=== PATIENT | male | born 1980 | race Caucasian/White ===

== ENCOUNTER 2022-07-12 09:00 | Emergency (ER) | payer BC ==
[2022-07-12] MEDS ORDERED: Sodium Chloride 0.9% 1000 ML 1,000 ML IV STA (09:36)
--- NOTE | 2022-07-12 10:00 | XRAY ---
Indication: Dizziness. Stroke. Multiple contiguous axial images obtained through the head without contrast. Comparison: None Normal appearing brain parenchyma, ventricles, and bony calvarium. Visualized paranasal sinuses and mastoid air cells are clear. Impression: Normal CT head without contrast exam.
--- NOTE | 2022-07-12 10:00 | ERPHSYRPT ---
- History of Present Illness Time Seen by Provider: 07/12/22 09:20 Source: patient Exam Limitations: no limitations Patient Subjective Stated Complaint: Pt states that he woke several times last night with his head spinning and was unable to walk, pt did vomit from it Triage Nursing Assessment: Pt brought to the ER by his , karl hooker, denies pain, states that when he got up to use the restroom last night that everything in his head was spinning and he couldn't stand up and he couldn't walk, he went back to sleep and later woke to feeling the same way, after getting up for a bit pt vomitted due to feeling so dizzy and then he felt better and decided to lay down, he layed on his left side and began feeling dizzy and so he rolled over to his right side and did not feel dizzy and he fell asleep, pt slept for a while and then got up and felt fine and got dressed and walked around and then went and brushed his teeth and then he started feeling a little bit dizzy again, pt states that he has never had anything like this happen to him before, 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 Family reports dizziness started approximately 1 AM. Patient went back to sleep and later began to feel dizzy a second time. Patient had 1 bout of emesis. Patient got up to go to the bathroom. Patient states he began to feel dizzy and weak. Patient had difficulty standing. Patient states that he could not walk because of the dizziness. Patient went back to bed laid down towards his right side and symptoms resolved. Patient states that laying towards his right improve the symptomology. Patient is here because "he does not feel right". No history of the same. Patient is otherwise healthy. No BHT. No loss of consciousness. No associated chest pain or shortness of breath. No sick contacts at home. Symptoms were moderate in intensity. No specific worsening or improving factors. 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 at bedside. They voiced no other complaints or concerns at this time. Timing/Duration: today Severity: moderate Modifying Factors: Improves With: other (It appears that positioning himself towards right side-lying improved symptoms.) Associated Symptoms: vomiting, No headaches, No syncope, No seizure Allergies/Adverse Reactions: No Known Drug Allergies Allergy (Verified 07/12/22 09:30) Hx Influenza Vaccination/Date Given: Yes Hx Pneumococcal Vaccination/Date Given: Yes Travel Risk - International Travel Have you traveled outside of the country in past 3 weeks: No - Coronavirus Screening Are you exhibiting any of the following symptoms?: No Close contact with a COVID-19 positive Pt in past 14-21 Days: No - Vaccine Status Have you recieved a Covid-19 vaccination: Yes 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: [employer] - Vaccination Dates Date of 2cond Vaccination (if applicable): 2020 - Review of Systems Constitutional: No Symptoms, No Fever, No Chills Eyes: No Symptoms Ears, Nose, & Throat: No Symptoms Respiratory: No Symptoms, No Cough, No Dyspnea Cardiac: No Symptoms, No Chest Pain, No Edema, No Syncope Abdominal/Gastrointestinal: No Symptoms, No Abdominal Pain, No Nausea, No Vomiting, No Diarrhea Genitourinary Symptoms: No Symptoms, No Dysuria Musculoskeletal: No Symptoms, No Back Pain, No Neck Pain Skin: No Symptoms, No Rash Neurological: No Symptoms, No Dizziness, No Focal Weakness, No Sensory Changes Psychological: No Symptoms Endocrine: No Symptoms Hematologic/Lymphatic: No Symptoms Immunological/Allergic: No Symptoms All Other Systems: Reviewed and Negative - Past Medical History Pertinent Past Medical History: Yes Psycho-Social History: Anxiety - Past Surgical History Past Surgical History: Yes Musculoskeletal: Orthopedic Surgery Other Surgical History: carpal tunnel. lasik eye. rt knee - Social History Smoking Status: Never smoker Exposure to second hand smoke: No Drug Use: none Patient Lives Alone: No - Nursing Vital Signs Nursing Vital Signs: Initial Vital Signs Temperature 98.1 F 07/12/22 09:14 Pulse Rate 78 07/12/22 09:14 Blood Pressure 129/90 07/12/22 09:14 O2 Sat by Pulse Oximetry 94 L 07/12/22 09:14 Pain Scale Pain Intensity 0 - Physical Exam General Appearance: no apparent distress, alert Eye Exam: PERRL/EOMI, eyes nml inspection Ears, Nose, Throat Exam: normal ENT inspection, TMs normal, pharynx normal, moist mucous membranes Neck Exam: normal inspection, non-tender, supple, full range of motion Respiratory Exam: normal breath sounds, lungs clear, airway intact, No respiratory distress Cardiovascular Exam: regular rate/rhythm, normal heart sounds, normal peripheral pulses Gastrointestinal/Abdomen Exam: soft, normal bowel sounds, No tenderness, No mass Back Exam: normal inspection, normal range of motion, No CVA tenderness, No vertebral tenderness Extremity Exam: normal inspection, normal range of motion, pelvis stable Neurologic Exam: alert, oriented x 3, cooperative, normal mood/affect, nml cerebellar function, nml station & gait, sensation nml, No motor deficits Skin Exam: normal color, warm, dry, No rash Lymphatic Exam: No adenopathy SpO2 Interpretation: normal SpO2: 94 O2 Delivery: Room Air - Course Nursing assessment & vital signs reviewed: No EKG Interpreted by Me: RATE ([id number]), Sinus Rhythm, NORMAL AXIS, NORMAL INTERVALS - CT Exams Head CT Interpretation: Tele-radiologist Report (Normal CT head without contrast) Other CT Interpretation: Tele-radiologist Report (Normal CT head without contrast.) Soft Tissue Neck CT Interpretation: Tele-radiologist Report (Normal CTA neck with contrast exam) Ordered Tests: Active Orders 24 hr Category Date Time Status 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 Care 07/12/22 09:37 Active Clean Catch Urine Specimen STAT Care 07/12/22 09:36 Active EKG-ER Only STAT Care 07/12/22 09:36 Active IV Insertion STAT Care 07/12/22 09:36 Active Pulse Oximetry (ED) STAT Care 07/12/22 09:[address] ANGIOGRAPHY NECK [CT] Stat Exams 07/12/22 13:21 Completed CTA HEAD W AND/OR WO CONTRAST [CT] Stat Exams 07/12/22 13:20 Completed HEAD WITHOUT CONTRAST [CT] Stat Exams 07/12/22 09:38 Completed MRI BRAIN W/O CONTRAST [MRI] Stat Exams 07/12/22 13:23 Completed CBC W DIFF Stat Lab 07/12/22 10:24 Completed CMP Stat Lab 07/12/22 10:24 Completed MAGNESIUM Stat Lab 07/12/22 10:24 Completed POCT GLUCOSE Stat Lab 07/12/22 09:56 Completed TROPONIN Q4H Lab 07/12/22 10:24 Completed TROPONIN Q4H Lab 07/12/22 15:13 Completed TROPONIN Q4H Lab 07/12/22 17:45 Ordered Urine Triage Profile Stat Lab 07/12/22 11:20 Completed Medication Summary Discontinued Medications Generic Name Dose Route Start Last Admin Trade Name Freq PRN Reason Stop Dose Admin Aspirin 324 mg 07/12/22 13:22 07/12/22 13:50 Aspirin 81 Mg Tab.Chew PO 07/12/22 13:23 324 mg STAT ONE Administration Aspirin Confirm 07/12/22 13:50 Aspirin 81 Mg Tab.Chew Administered 07/12/22 13:51 Dose 324 mg .ROUTE .STK-MED ONE Sodium Chloride 1,000 mls @ 999 mls/hr 07/12/22 09:36 07/12/22 11:43 Sodium Chloride 0.9% 1000 Ml IV 07/12/22 10:36 Infused .Q1H1M STA Infusion Sodium Chloride Confirm 07/12/22 10:15 Sodium Chloride 0.9% 1000 Ml Administered 07/12/22 10:16 Dose 1,000 mls @ ud .ROUTE .STK-MED ONE Meclizine HCl 25 mg 07/12/22 14:02 07/12/22 15:17 Meclizine Hcl 25 Mg Tablet PO 07/12/22 14:03 25 mg STAT ONE Administration Meclizine HCl Confirm 07/12/22 15:17 Meclizine Hcl 25 Mg Tablet Administered 07/12/22 15:18 Dose 25 mg .ROUTE .STK-MED ONE Ondansetron HCl 4 mg 07/12/22 14:03 Ondansetron Hcl 4 Mg/2 Ml Vial IV 07/12/22 14:04 STAT ONE Lab/Rad Data: Laboratory Result Diagrams 07/12/22 10:24 07/12/22 10:24 Laboratory Results 07/12/22 07/12/22 07/12/22 Range/Units 15:13 11:45 11:20 WBC (4.0-10.5) x10^3/uL RBC (4.1-5.6) x10^6/uL Hgb (12.5-18.0) g/dL Hct (42-50) % MCV (78-100) fL MCH (26-32) pg MCHC (32-36) g/dL RDW (11.5-14.0) % Plt Count (150-450) x10^3/uL MPV (7.5-11.0) fL Gran % (36.0-66.0) % Immature Gran % (Auto) (0.00-0.4) % Nucleat RBC Rel Count (0.00-0.1) % Eos # (Auto) (0-0.5) x10^3/uL Immature Gran # (Auto) (0.00-0.03) x10^3u/L Absolute Lymphs (auto) (1.0-4.6) x10^3/uL Absolute Monos (auto) (0.0-1.3) x10^3/uL Absolute Nucleated RBC (0.00-0.01) x10^3u/L Lymphocytes % (24.0-44.0) % Monocytes % (0.0-12.0) % Eosinophils % (0.00-5.0) % Basophils % (0.0-0.4) % Absolute Granulocytes (1.4-6.9) x10^3/uL Basophils # (0-0.4) x10^3/uL Sodium (137-145) mmol/L Potassium (3.5-5.1) mmol/L Chloride (98-107) mmol/L Carbon Dioxide (22-30) mmol/L Anion Gap (5-15) MEQ/L BUN (9-20) mg/dL Creatinine (0.66-1.25) mg/dL Estimated GFR ML/MIN Glucose (74-106) mg/dL POC Glucometer (74 to 106) mg/dL Calcium (8.4-10.2) mg/dL Magnesium (1.6-2.3) mg/dL Total Bilirubin (0.2-1.3) mg/dL AST (17-59) U/L ALT (0-50) U/L Alkaline Phosphatase (38-126) U/L Troponin I < 0.012 (0.000-0.034) ng/mL Serum Total Protein (6.3-8.2) g/dL Albumin (3.5-5.0) g/dL Urine Opiates Level NEGATIVE (NEGATIVE) Ur Methadone NEGATIVE (NEGATIVE) Urine Barbiturates NEGATIVE (NEGATIVE) Ur Phencyclidine (PCP) NEGATIVE (NEGATIVE) Urine Amphetamine NEGATIVE (NEGATIVE) U Benzodiazepine Level NEGATIVE (NEGATIVE) Urine Cocaine NEGATIVE (NEGATIVE) Urine Marijuana (THC) NEGATIVE (NEGATIVE) Influenza Type A Ag NEGATIVE (NEGATIVE) Influenza Type B Ag NEGATIVE (NEGATIVE) RSV (PCR) NEGATIVE (Negative) SARS-CoV-2 (PCR) NEGATIVE (NEGATIVE) 07/12/22 07/12/22 07/12/22 Range/Units 10:24 10:24 10:24 WBC 4.7 (4.0-10.5) x10^3/uL RBC 5.02 (4.1-5.6) x10^6/uL Hgb 15.6 (12.5-18.0) g/dL Hct 46.1 (42-50) % MCV 91.8 (78-100) fL MCH 31.1 (26-32) pg MCHC 33.8 (32-36) g/dL RDW 12.0 (11.5-14.0) % Plt Count 280 (150-450) x10^3/uL MPV 9.4 (7.5-11.0) fL Gran % 69.6 H (36.0-66.0) % Immature Gran % (Auto) 0.2 (0.00-0.4) % Nucleat RBC Rel Count 0.0 (0.00-0.1) % Eos # (Auto) 0.04 (0-0.5) x10^3/uL Immature Gran # (Auto) 0.01 (0.00-0.03) x10^3u/L Absolute Lymphs (auto) 1.05 (1.0-4.6) x10^3/uL Absolute Monos (auto) 0.30 (0.0-1.3) x10^3/uL Absolute Nucleated RBC 0.00 (0.00-0.01) x10^3u/L Lymphocytes % 22.6 L (24.0-44.0) % Monocytes % 6.5 (0.0-12.0) % Eosinophils % 0.9 (0.00-5.0) % Basophils % 0.2 (0.0-0.4) % Absolute Granulocytes 3.24 (1.4-6.9) x10^3/uL Basophils # 0.01 (0-0.4) x10^3/uL Sodium 140 (137-145) mmol/L Potassium 4.4 (3.5-5.1) mmol/L Chloride 105 (98-107) mmol/L Carbon Dioxide 25 (22-30) mmol/L Anion Gap 13.4 (5-15) MEQ/L BUN 14 (9-20) mg/dL Creatinine 0.66 (0.66-1.25) mg/dL Estimated GFR > 60.0 ML/MIN Glucose 112 H (74-106) mg/dL POC Glucometer (74 to 106) mg/dL Calcium 9.2 (8.4-10.2) mg/dL Magnesium 2.3 (1.6-2.3) mg/dL Total Bilirubin 0.60 (0.2-1.3) mg/dL AST 51 (17-59) U/L ALT 56 H (0-50) U/L Alkaline Phosphatase 63 (38-126) U/L Troponin I < 0.012 (0.000-0.034) ng/mL Serum Total Protein 8.0 (6.3-8.2) g/dL Albumin 4.6 (3.5-5.0) g/dL Urine Opiates Level (NEGATIVE) Ur Methadone (NEGATIVE) Urine Barbiturates (NEGATIVE) Ur Phencyclidine (PCP) (NEGATIVE) Urine Amphetamine (NEGATIVE) U Benzodiazepine Level (NEGATIVE) Urine Cocaine (NEGATIVE) Urine Marijuana (THC) (NEGATIVE) Influenza Type A Ag (NEGATIVE) Influenza Type B Ag (NEGATIVE) RSV (PCR) (Negative) SARS-CoV-2 (PCR) (NEGATIVE) 07/12/22 Range/Units 09:56 WBC (4.0-10.5) x10^3/uL RBC (4.1-5.6) x10^6/uL Hgb (12.5-18.0) g/dL Hct (42-50) % MCV (78-100) fL MCH (26-32) pg MCHC (32-36) g/dL RDW (11.5-14.0) % Plt Count (150-450) x10^3/uL MPV (7.5-11.0) fL Gran % (36.0-66.0) % Immature Gran % (Auto) (0.00-0.4) % Nucleat RBC Rel Count (0.00-0.1) % Eos # (Auto) (0-0.5) x10^3/uL Immature Gran # (Auto) (0.00-0.03) x10^3u/L Absolute Lymphs (auto) (1.0-4.6) x10^3/uL Absolute Monos (auto) (0.0-1.3) x10^3/uL Absolute Nucleated RBC (0.00-0.01) x10^3u/L Lymphocytes % (24.0-44.0) % Monocytes % (0.0-12.0) % Eosinophils % (0.00-5.0) % Basophils % (0.0-0.4) % Absolute Granulocytes (1.4-6.9) x10^3/uL Basophils # (0-0.4) x10^3/uL Sodium (137-145) mmol/L Potassium (3.5-5.1) mmol/L Chloride (98-107) mmol/L Carbon Dioxide (22-30) mmol/L Anion Gap (5-15) MEQ/L BUN (9-20) mg/dL Creatinine (0.66-1.25) mg/dL Estimated GFR ML/MIN Glucose (74-106) mg/dL POC Glucometer 110 H (74 to 106) mg/dL Calcium (8.4-10.2) mg/dL Magnesium (1.6-2.3) mg/dL Total Bilirubin (0.2-1.3) mg/dL AST (17-59) U/L ALT (0-50) U/L Alkaline Phosphatase (38-126) U/L Troponin I (0.000-0.034) ng/mL Serum Total Protein (6.3-8.2) g/dL Albumin (3.5-5.0) g/dL Urine Opiates Level (NEGATIVE) Ur Methadone (NEGATIVE) Urine Barbiturates (NEGATIVE) Ur Phencyclidine (PCP) (NEGATIVE) Urine Amphetamine (NEGATIVE) U Benzodiazepine Level (NEGATIVE) Urine Cocaine (NEGATIVE) Urine Marijuana (THC) (NEGATIVE) Influenza Type A Ag (NEGATIVE) Influenza Type B Ag (NEGATIVE) RSV (PCR) (Negative) SARS-CoV-2 (PCR) (NEGATIVE) - Progress Progress: improved Progress Note: MRI brain without contrast is normal. 07/12/22 16:02 Patient 42-year-old male presents to our ED for evaluation of cute onset dizziness. Physical exam reveals dizziness possible vertigo however on the differential diagnosis is a posterior cerebral stroke. Patient's complaint is acute in nature. Complexity is moderate. No significant comorbidities contribute the patient's presentation. Studies obtained include EKG which was reviewed by Dr. Rutledge personally. EKG showed normal sinus rhythm. CTA head, CTA neck, plain CT head, MRI brain. Other studies include CBC CMP COVID testing, magnesium, troponin, toxicology screen. Laboratory work-up essentially unremarkable. Imaging study of head was negative. Patient received meclizine for dizziness. Patient received aspirin after plain CT head as protocol for possible TIA/stroke. Normal saline administered as well. Patient had no nausea in our ED. Zofran was ordered however not administered. We consulted telemetry neuro who advised the MRI, CTA of the head and neck. Per our neurologist patient could be discharged as long as the i maging studies were negative. All imaging studies are negative patient will be discharged home. There is no indication for tPA. Patient was outside of therapeutic window and however physical exam and history did not mandate tPA. Patient agrees to follow-up with primary care doctor within 48 hours for reevaluation. Level of M service provided was moderate. Complexity of problems addressed was moderate. Complex of data reviewed and analyzed is moderate. Risk of complication and/or risk of morbidity/mortality of patient management was moderate. No critical care time. Patient's served as independent historian as patient felt unwell to provide information for our HPI. The results of our testing was used for medical decision making. Discharge diagnosis is dizziness/vertigo. Patient reassessed. He feels much better. Dizziness resolved. Patient agrees to follow-up with his primary care doctor within 48 hours for reevaluation. Time spent during discharge is approximately 15 minutes. Patient and voiced no other complaints or concerns at this time. Will discharge home. Portions of this note were created with voice recognition technology. There may be grammatical, spelling, punctuation or sound alike errors 07/12/22 16:04 07/12/22 16:07 Counseled pt/family regarding: lab results, diagnosis, need for follow-up, rad results - Departure Departure Disposition: Home Clinical Impression: Dizziness, Vertigo Condition: Stable Critical Care Time: No Referrals: [facility] [employer] [Primary Care Provider] - Follow up/PCP as directed Prescriptions: Ondansetron ODT 4 MG [Zofran Odt 4 mg] 4 mg PO Q6H PRN PRN #10 tablet PRN Reason: Vomiting Meclizine HCl 25 mg [Antivert 25 mg] 25 mg PO DAILY 7 Days #7 tablet
[2022-07-12] MEDS ORDERED: Sodium Chloride 0.9% 1000 ML 1,000 ML ONE (10:15)
[2022-07-12 10:28] LABS: Absolute Neutrophil Ct (ANC) 3.24 x10^3/uL (1.4-6.9); BASOPHIL % 0.2 % (0.0-0.4); Basophil (Absolute #) 0.01 x10^3/uL (0-0.4); Eosinophil % 0.9 % (0.00-5.0); Eosinophil (Absolute #) 0.04 x10^3/uL (0-0.5); Hematocrit 46.1 % (42-50); Hemoglobin 15.6 g/dL (12.5-18.0); IMMATURE GRAN # 0.01 x10^3u/L (0.00-0.03); IMMATURE GRAN % 0.2 % (0.00-0.4); Lymphocyte (Absolute #) 1.05 x10^3/uL (1.0-4.6); Lymphocytes % 22.6 % (24.0-44.0); Mean Cell Volume 91.8 fL (78-100); Mean Corpuscular Hemoglobin 31.1 pg (26-32); Mean Corpuscular Hgb Concent. 33.8 g/dL (32-36); Mean Platelet Volume 9.4 fL (7.5-11.0); Monocytes % 6.5 % (0.0-12.0); Neutrophil % 69.6 % (36.0-66.0); Platelet Count 280 x10^3/uL (150-450); Red Blood Count 5.02 x10^6/uL (4.1-5.6); White Blood Count 4.7 x10^3/uL (4.0-10.5)
[2022-07-12 10:43] LABS: ALBUMIN 4.6 g/dL (3.5-5.0); ALKALINE PHOSPHATASE 63 U/L (38-126); ANION GAP 13.4 MEQ/L (5-15); BLOOD UREA NITROGEN 14 mg/dL (9-20); CHLORIDE 105 mmol/L (98-107); Calcium 9.2 mg/dL (8.4-10.2); Carbon Dioxide 25 mmol/L (22-30); Creatinine 1 0.66 mg/dL (0.66-1.25); EST GLOMERULAR FILTRATION RATE > 60.0 ML/MIN; Glucose 112 mg/dL (74-106); MAGNESIUM 2.3 mg/dL (1.6-2.3); Potassium 4.4 mmol/L (3.5-5.1); SGOT/AST 51 U/L (17-59); SGPT/ALT 56 U/L (0-50); SODIUM 140 mmol/L (137-145)
[2022-07-12 12:16] LABS: Amphetamine,Urine NEGATIVE (NEGATIVE); Barbiturate,Urine NEGATIVE (NEGATIVE); Benzodiazepine,Urine NEGATIVE (NEGATIVE); Cocaine,Urine NEGATIVE (NEGATIVE); Methadone,Urine NEGATIVE (NEGATIVE); Opiate,Urine NEGATIVE (NEGATIVE); PCP,Urine NEGATIVE (NEGATIVE); THC,Urine NEGATIVE (NEGATIVE)
[2022-07-12 12:23] LABS: INFLUENZA A NEGATIVE (NEGATIVE); INFLUENZA B NEGATIVE (NEGATIVE); RESPIRATORY SYNCTIAL VIRUS NEGATIVE (Negative); SARS-CoV-2 Xpert Express NEGATIVE (NEGATIVE)
[2022-07-12] MEDS ORDERED: BABY ASPIRIN 81 MG CHEW PO ONE (13:22)
[2022-07-12] MEDS ORDERED: BABY ASPIRIN 81 MG CHEW ONE (13:50)
[2022-07-12] MEDS ORDERED: ANTIVERT 25 MG PO ONE (14:02)
[2022-07-12] MEDS ORDERED: Zofran 4 MG/2 ML VIAL IV ONE (14:03)
[2022-07-12] MEDS ORDERED: ANTIVERT 25 MG ONE (15:17)
--- NOTE | 2022-07-12 15:27 | XRAY ---
Indication: Severe dizziness. Stroke. Normal CT head and normal MRI brain. Conventional contrast enhanced CTA neck performed using 80 cc Isovue 370 contrast. 2-D sagittal and coronal reformatted images obtained. Additional 3-D reformatted images obtained using a separate workstation. Comparison: None Visualized aortic arch is negative for aneurysm/dissection. Normal widely patent branching right brachiocephalic, left common carotid, and left subclavian arteries. Left and right common carotid, carotid bulb, internal carotid, and external carotid arteries are normal in CTA appearance. Vertebral arteries are also normal in CTA with the left slightly larger in caliber. A few sub-centimeter cervical lymph nodes bilaterally. No pathologic cervical/supraclavicular lymphadenopathy. Parotid and submandibular glands are bilaterally symmetric. Thyroid gland enhances homogeneously. Supra and infraglottic airway widely patent. Normal epiglottis. Osseous structures intact with minimal C5-C6 degenerative changes. Lung apices demonstrates small right apical calcified granuloma. Impression: Normal CTA neck with contrast exam.
--- NOTE | 2022-07-12 15:29 | XRAY ---
Indication: Severe dizziness. Stroke. Normal CT head and normal MRI brain exams. Conventional contrast enhanced CTA head performed using 80 cc Isovue 370 contrast. 2-D sagittal and coronal reformatted images obtained. Additional 3-D reformatted images obtained using a separate workstation. Comparison: None Distal internal carotid arteries are bilaterally symmetric without critical stenosis, obstruction, or AV malformation. Normal carotid terminus with normal branching A1 and M1 segments bilaterally. More distal anterior cerebral and middle cerebral arteries are normal in CTA appearance bilaterally. Anatomic variant for origin left posterior cerebral artery. Posterior circulation demonstrates normal CTA appearance to the basilar, left/right posterior cerebral, and left/right superior cerebellar arteries. Venous sinuses/drainage unremarkable. No abnormal enhancing intra or extra-axial mass. Impression: Normal CTA head with contrast exam.
[2022-07-12 15:40] VITALS: O2SAT 94
--- NOTE | 2022-07-12 15:48 | XRAY ---
Indication: Severe dizziness. Stroke. Normal CT head without contrast exam. Sagittal, coronal, and axial MRI brain performed without contrast using T1, T2, FLAIR, diffusion, and ADC sequences. Comparison: None Ventriculosulcal pattern appears symmetric. No acute intracranial hemorrhage, abnormal extra-axial fluid collection, or mass effect. Diffusion images are negative for restricted signal. Fourth ventricle is midline without hydrocephalus. 7/8 cranial nerve complex bilaterally symmetric. Normal flow void signal within the major intracerebral circulation. Normal appearing craniocervical junction and sella turcica. Paranasal sinuses are clear. Impression: Normal MRI brain without contrast exam.
[2022-07-12 16:04] VITALS: BP 133/88; PULSE 68
== END 2022-07-12 16:22 | disposition home or self-care (01) ==
LOC: ED 09:00
DX: R42 Dizziness and giddiness (principal); R11.10 Vomiting, unspecified
CPT/HCPCS: 0241U; 36415; 70450; 70496; 70498; 70551; 80053; 80307; 82947; 83735; 84484; 85025; 93005; 93041; 94760; 96360; 99284; A9270-GY

== ENCOUNTER 2023-12-05 05:53 | Day surgery (SDC) | payer OTHER ==
[2023-12-05] MEDS: Lactated Ringers 1,000 ML IV SCH (06:18)
[2023-12-05] MEDS: CEFAZOLIN 2 GM-D5W BAG** 2 GM/50 ML ML IV SCH (06:18)
[2023-12-05] MEDS ORDERED: Lactated Ringers 1,000 ML IV ONE (06:25)
[2023-12-05] MEDS ORDERED: MARCAINE 0.25% PF/ EPI 1:200,000 ONE (06:25)
[2023-12-05] MEDS ORDERED: Xylocaine-Mpf 2% 5 Ml Vial IJ ONE ×2 (06:53→06:55)
[2023-12-05] MEDS ORDERED: Zofran 4 MG/2 ML VIAL IV ONE ×2 (06:53→06:55)
[2023-12-05] MEDS ORDERED: TORAdol 30 mg Injection IJ ONE ×2 (06:53→06:55)
[2023-12-05] MEDS ORDERED: Decadron 4 MG INJ IV ONE ×2 (06:53→06:55)
[2023-12-05] MEDS ORDERED: DIPRIVAN 200 MG/20 ML IV ONE ×2 (06:54)
[2023-12-05] MEDS ORDERED: Versed 2 MG/2 ML Injection ONE (07:22)
[2023-12-05] MEDS ORDERED: SUBLIMAZE 100 MCG/2 ML IV ONE (07:23)
[2023-12-05] MEDS ORDERED: Epinephrine Preservative Free 1 MG/ML ONE ×2 (07:46→07:57)
[2023-12-05] MEDS ORDERED: SUBLIMAZE 100 MCG/2 ML ONE (08:45)
[2023-12-05] MEDS ORDERED: Hydromorphone 1 mg/ml Injection ONE (08:46)
[2023-12-05] MEDS ORDERED: MORPHINE SULFATE 10 MG/ML ONE (09:14)
[2023-12-05 09:51] VITALS: TEMP 96.5
[2023-12-05 10:39] VITALS: BP 133/93; PULSE 89; RESP 16; O2SAT 95
--- NOTE | 2023-12-05 23:24 | OP ---
SURGERY DATE/TIME: 12/05/2023 5208 - [id number] PREOPERATIVE DIAGNOSIS: Right knee medial and lateral meniscal tears. POSTOPERATIVE DIAGNOSES: Right knee medial and lateral meniscal tear and lateral femoral condyle cartilage defect with loose body. PROCEDURES: 1) Right knee arthroscopy with partial medial and lateral meniscectomy. 2) Right lateral femoral condyle microfracture. SURGEON: Ovi Asher MD ANESTHESIA: General. FINDINGS: Normal patellofemoral joint. The medial compartment showed normal articular surfaces. There is mild edge tearing of the anterior medial meniscus at the 6 o'clock position. The ACL was okay. The lateral compartment findings were a 12 o'clock lateral meniscal tear. There was about a 12 mm x 5 mm longitudinal full-thickness cartilage defect in the weightbearing portion of the lateral femoral condyle. INDICATIONS FOR PROCEDURE: Patient is a 43-year-old white male with painful right knee refractive to conservative care. It was thought he may have a meniscal tear that would benefit from debridement. DESCRIPTION OF PROCEDURE AND FINDINGS: Patient was seen in the holding area. We identified the right knee as correct. This was initialed by me. He had 2 g of Kefzol IV preoperatively. He was taken to the OR where he had general anesthesia. He was placed supine with his right lower extremity in arthroscopic leg gonsalves and left lower extremity in Toribio leg gonsalves with hip and knee flexed mildly. He had sterile prep and draping to the right lower extremity. The portals were each injected with 3 mL of 0.25% Marcaine with epinephrine. The knee was injected with about 10 mL of the 0.25% Marcaine with epinephrine. Time out was performed. The lateral portal was made 5 mm lateral to the patellar tendon and 5 mm superior to the joint line with a 15 blade aiming towards the notch. A blunt trocar was used to introduce the 30-degree scope into the lateral joint line portal with pump pressure set at 15 mmHg, irrigating copiously with normal saline with 1 mL of 1:100,000 epinephrine/3 L bag. The joint was inspected and medial portal was made 5 mm to the medial patella and 5 mm superior to the joint line. The probe was used in this portal to probe the 3 compartments with the findings as mentioned as above. There was also a small loose body about 5 mm long x 3 mm in diameter and appeared to be cartilage. The shaver was used to debride the anterior medial meniscal tear and the posterior lateral meniscal tear. Then the cartilage defect on the lateral femoral condyle was debrided with a shaver to remove loose cartilage edges. Then knee was flexed 30 degrees. Cartilage pick was used to perform multiple microfractures with good bleeding obtained from this. The depth of the penetration was about 4 mm. The knee was then thoroughly irrigated with the large cannula to allow the loose body to come out. The foot was allowed to extravasate. Then portals were closed with 4-0 Monocryl subcuticular suture, Steri-Strips and Mastisol. Sterile dressings applied. ESTIMATED BLOOD LOSS: 0. FLUIDS: See Anesthesia record. SPECIMENS: None. DRAINS: None. COMPLICATIONS: None. Plan is for patient to be weightbearing as tolerated. He will go home toe-touch weight bear for 4 weeks. He may range of motion the knee. We will hold him off work. We will see him back in 1 week. He will go home on [place] 7.5, 1 p.o. q.6 h. p.r.n., dispense #15. He may take anti-inflammatories also. He may eventually need a cartilage replacement procedure.
== END 2023-12-05 10:50 | disposition home or self-care (01) ==
LOC: SDC 05:53
PROVIDERS: ATTEND Orthopaedic Surgery
DX: S83.281A Other tear of lateral meniscus, current injury, right knee, initial encounter (principal); S83.241A Other tear of medial meniscus, current injury, right knee, initial encounter; M24.111 Other articular cartilage disorders, right shoulder
CPT/HCPCS: 27333; 29879; J0171; J0690; J1100; J1170; J1885; J2250; J2270; J2405; J2704; J3010

== ENCOUNTER 2024-06-25 10:55 | Emergency (ER) | payer SELFPAY ==
[2024-06-25 11:19] VITALS: BP 160/109; PULSE 86; RESP 18; TEMP 93; O2SAT 98
[2024-06-25] MEDS: XYLOCAINE 1% HCL 20 ML MDV IJ ONE (11:25)
[2024-06-25] MEDS: XYLOCAINE 1%/Epi 1:100000 MDV 20 ML IJ ONE (11:27)
[2024-06-25] MEDS ORDERED: XYLOCAINE 1%/Epi 1:100000 MDV 20 ML ONE (11:28)
--- NOTE | 2024-06-25 11:40 | ERPHSYRPT ---
- History of Present Illness Time Seen by Provider: 06/25/24 11:25 Source: patient Exam Limitations: no limitations Patient Subjective Stated Complaint: RIGHT INDEX FINGER INJURY, NUCKLE. 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 Triage Nursing Assessment: RIGHT FINGER, NUCKLE, SHOWS A LAC APPROX 1X0.5CM WITH A SLIGHT AMOUNT OF A BLACK DEBRIS NOTED. NO ACTIVE BLEDING AT THIS TIME. Physician History: 44-year-old male presents to our ED for evaluation and treatment of a laceration just superficial to the right index PIP joint. 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 Injury occurred just prior to arrival. Patient reports his tetanus is up-to-date. Patient declined a x-ray of his finger. Pain described as an ache that is localized. Wound was measured and irrigated by RN. Wound length is 1 cm. No other injuries reported. Patient voices no other complaints or concerns at this time. Portions of this note were created with voice recognition technology. There may be grammatical, spelling, punctuation or sound alike errors Timing/Duration: today (Just prior to arrival) Severity: mild Modifying Factors: Improves With: nothing Associated Symptoms: denies symptoms Allergies/Adverse Reactions: No Known Drug Allergies Allergy (Verified 06/25/24 11:40) Home Medications: No Reportable Medications [No Reported Medications] 06/25/24 [History] Hx Tetanus, Diphtheria Vaccination/Date Given: Yes (WITHIN THE LAST 2 YEARS) Hx Influenza Vaccination/Date Given: No Hx Pneumococcal Vaccination/Date Given: No Immunizations Up to Date: No Travel Risk - International Travel Have you traveled outside of the country in past 3 weeks: No - Emerging Infectious Disease Are you exhibiting symptoms associated with any current EIDs: No - Review of Systems Constitutional: No Symptoms, No Fever, No Chills Eyes: No Symptoms Ears, Nose, & Throat: No Symptoms Respiratory: No Symptoms, No Cough, No Dyspnea Cardiac: No Symptoms, No Chest Pain, No Edema, No Syncope Abdominal/Gastrointestinal: No Symptoms, No Abdominal Pain, No Nausea, No Vomiting, No Diarrhea Genitourinary Symptoms: No Symptoms, No Dysuria Musculoskeletal: No Symptoms, No Back Pain, No Neck Pain Skin: No Symptoms, No Rash Neurological: No Symptoms, No Dizziness, No Focal Weakness, No Sensory Changes Psychological: No Symptoms Endocrine: No Symptoms Hematologic/Lymphatic: No Symptoms Immunological/Allergic: No Symptoms All Other Systems: Reviewed and Negative - Past Medical History Pertinent Past Medical History: Yes Neurological History: No Pertinent History ENT History: No Pertinent History Cardiac History: No Pertinent History Respiratory History: No Pertinent History Endocrine Medical History: No Pertinent History Musculoskeletal History: No Pertinent History GI Medical History: No Pertinent History History: No Pertinent History Psycho-Social History: Anxiety Male Reproductive Disorders: No Pertinent History Other Medical History: LASIX EYE SURGERY, R CARPAL TUNNEL SX (2013), L KNEE SX WITH BONE SPUR REMOVAL, L QUAD TEAR, HX OF LUMBAR DISC INJURY - Past Surgical History Past Surgical History: Yes Neuro Surgical History: No Pertinent History Cardiac: No Pertinent History Respiratory: No Pertinent History Gastrointestinal: No Pertinent History Genitourinary: No Pertinent History Musculoskeletal: Orthopedic Surgery Male Surgical History: No Pertinent History Other Surgical History: LASIX EYE SURGERY, R CARPAL TUNNEL SX (2013), L KNEE SX WITH BONE SPUR REMOVAL, L QUAD TEAR, HX OF LUMBAR DISC INJURY. RIGHT TORN MANISC SX IN DECEMBER - Social History Smoking Status: Never smoker Exposure to second hand smoke: Yes Drug Use: none Patient Lives Alone: No - Social Determinants of Health Will the patient participate in the screening: Declined to provide - Nursing Vital Signs Nursing Vital Signs: Initial Vital Signs Temperature 93 F 06/25/24 11:17 Pulse Rate 86 06/25/24 11:17 Respiratory Rate 18 06/25/24 11:17 Blood Pressure 160/109 06/25/24 11:17 O2 Sat by Pulse Oximetry 98 06/25/24 11:17 Pain Scale Pain Intensity 1 - Physical Exam General Appearance: no apparent distress, alert Eye Exam: PERRL/EOMI, eyes nml inspection Ears, Nose, Throat Exam: normal ENT inspection Neck Exam: normal inspection, full range of motion Respiratory Exam: normal breath sounds, airway intact, No respiratory distress Cardiovascular Exam: regular rate/rhythm, normal peripheral pulses, other (Intact radial pulse at the involved extremity) Back Exam: normal inspection, normal range of motion, No vertebral tenderness Extremity Exam: normal inspection, normal range of motion, pelvis stable, other (There is a 1 cm laceration over the right index finger PIP joint. On examination there appears to be involvement of the bone. However patient declined an x-ray of the involved digit. However extensor tendon function appears to be intact. The involved digits neurovascular tact distally ) Neurologic Exam: alert, oriented x 3, cooperative, normal mood/affect, sensation nml, No motor deficits Skin Exam: normal color, warm, dry, No rash Lymphatic Exam: No adenopathy SpO2 Interpretation: normal SpO2: 98 O2 Delivery: Room Air Procedures - Laceration/Wound Repair Right Finger Time of Procedure: 11:20 Wound Location: Right (Right index finger superficial to PIP joint) Wound Length (cm): 1 Wound's Depth, Shape: superficial Wound Explored: clean Irrigated: Yes Hibiclens Prep: Yes Anesthesia: local, 1% lidocaine w/ Epi (Local 1% lidocaine with epi to obtain hemostasis.) Volume Anesthetic (ccs): 3 Wound Debrided: No wound debridement indicated Wound Repaired With: sutures Suture Size/Type: 5-0, ethilon Number of Sutures: 3 Layer Closure?: No Sterile Dressing Applied?: Yes Splint Applied?: Yes Sling Applied?: No Progress: Patient neurovascular tact distally post procedure. No intra or postprocedural complications. Patient tolerated procedure well. 06/25/24 11:40 - Course Nursing assessment & vital signs reviewed: Yes Ordered Tests: Medication Summary Discontinued Medications Generic Name Dose Route Start Last Admin Trade Name Freq PRN Reason Stop Dose Admin Lidocaine HCl 4 ml 06/25/24 11:21 06/25/24 11:25 Lidocaine Hcl 1% 20 Ml Mdv 20 Ml Ml IJ 06/25/24 11:22 Not Given STAT ONE Lidocaine/Epinephrine 4 ml 06/25/24 11:26 06/25/24 11:27 Lidocaine Hcl/Epinephrine 1% 20 Ml IJ 06/25/24 11:27 4 ml STAT ONE Administration Lidocaine/Epinephrine Confirm 06/25/24 11:28 Lidocaine Hcl/Epinephrine 1% 20 Ml Administered 06/25/24 11:29 Dose 4 ml .ROUTE .STEndPlay-MED ONE - Progress Progress: improved Progress Note: 44-year-old male presents to our ED for evaluation of a finger laceration involving the right index finger. Laceration length measures 1 cm. There is an adjacent laceration arranged in parallel that also measures 1 cm however the second laceration appears to be significantly more superficial. The wound was anesthetized using 3 cc 1% lidocaine with epi. Epi used for hemostasis. The injection was localized careful not to involve the digital arteries. The wound was closed using 3 simple interrupted sutures. Suture material used with 5-0 Ethilon. Patient tolerated procedure well. Patient neurovascular tact distally post procedure. Patient declined an x-ray of the involved digit. A prescription for antibiotics forwarded to patient's pharmacy. Patient to begin his antibiotics today. Patient referred to orthopedic clinic for follow-up. No indication for further workup at this time will discharge home. Patient agrees to take his antibiotics and follow-up as planned. He voices no other complain ts or concerns at this time. Patient's digit neurovascular distally post procedure. Compartments are soft cap refill less than 2 seconds. AlumaFoam splint placed by RN. Patient neurovascular tact distally post splint placement as well. Complexity of problem addressed is moderate acute complicated no critical care time. Complex of data reviewed and analyzed is none. No specialized testing or dered. Diagnosis made based on history and physical exam. Risk of complication and or risk of morbidity/mortality of patient management is moderate. A prescription for antibiotics/Keflex forwarded to patient's pharmacy. Vital stable. Time spent to discharge patient approximately 10 minutes. Plan of care established for shared decision making. Patient agrees to follow-up in the orthopedic clinic as planned. No social determinants of health present to impede follow-up. Sutures are to be removed in 1 week's time finger splint may be removed in 3 days Portions of this note were created with voice recognition technology. There may be grammatical, spelling, punctuation or sound alike errors 06/25/24 11:37 Counseled pt/family regarding: diagnosis, need for follow-up - Departure Departure Disposition: Home Clinical Impression: Finger laceration Condition: Stable Critical Care Time: No Referrals: MEGHAN NUNEZ NP [Primary Care Provider] - Follow up/PCP as directed Additional Instructions: Discharge/Care Plan MARISOL CARLSON was seen on 06/25/24 in the Emergency Room. The patient was counseled regarding Diagnosis,Lab results, Imaging studies, need for follow up and when to return to the Emergency Room. Prescriptions given: Discharge Note I have spoken with the patient and/or caregivers. I have explained the patient's condition, diagnosis and treatment plan based on the information available to me at this time. I have answered the patient's and/or caregiver's questions and addressed any concerns. The patient and/or caregivers have as good understanding of the patient's diagnosis, condition and treatment plan as can be expected at this point. The vital signs have been stable. The patient's condition is stable and appropriate for discharge from the emergency department. The patient will pursue further outpatient evaluation with the primary care physician or other designated or consulting physician as outlined in the discharge instructions. The patient and/or caregivers are agreeable to this plan of care and follow-up instructions have been explained in detail. The patient and/or caregivers have received these instruction. The patient/and or caregivers are aware that any significant change in condition or worsening of symptoms should prompt an immediate return to this or the closest emergency department or call 911. Outpatient Orders: Ortho Referral Time Frame: 1 Day, Facility: [facility], Locati on: ORTHO CLINIC
== END 2024-06-25 11:53 | disposition home or self-care (01) ==
LOC: ED 10:55
DX: S61.210A Laceration without foreign body of right index finger without damage to nail, initial encounter (principal); W31.1XXA Contact with metalworking machines, initial encounter; Y99.0 Civilian activity done for income or pay
CPT/HCPCS: 12001; 99283